=== PATIENT | female | born 1945 ===

== ENCOUNTER 2020-01-10 07:33 | Observation (INO) ==
[~2020-01-10 07:33] MED LIST: Buffered Lidocaine 1% SYRIN 1 ml INTRADERM ONE; Lactated Ringers 1000 ml BAG 1,000 ML IV SCH
[2020-01-10] MEDS ORDERED: ceFAZolin 2 GM PREMIX 2 GM/50 ML BAG ONE (07:42)
[2020-01-10] MEDS ORDERED: fentaNYL 100 mcg/2 ml 50 MCG/ML VIAL ONE ×4 (07:56→13:01)
[2020-01-10] MEDS ORDERED: Midazolam 2 mg/2 ml VIAL 1 mg/ml 2 ml VIAL (2 mg) ONE (07:56)
[2020-01-10] MEDS ORDERED: Propofol 10 MG/ML 20 ML BTL ONE (07:57)
[2020-01-10] MEDS ORDERED: ROPIVACAINE 5 MG/ML 30 ML BTL (0.5%) ONE ×2 (09:06→09:08)
[2020-01-10] MEDS ORDERED: Lidocaine 2% PF 5 ML VIAL ONE (09:06)
[2020-01-10] MEDS ORDERED: Bupivacaine 0.5% SDV PF 30ML VIAL ONE (09:06)
[2020-01-10] MEDS ORDERED: Bupivacaine 0.25% SDV PF 10 ML VIAL INJ ONE (09:06)
[2020-01-10] MEDS ORDERED: Phenylephrine 40 mcg/mL 10mL (400mcg) SYRINGE ONE (10:03)
[2020-01-10] MEDS ORDERED: Rocuronium 50 mg VIAL 10 mg/ml 5 ml VIAL (50 mg) ONE (10:06)
[2020-01-10] MEDS ORDERED: HYDROmorphone 1 MG/1 ML SYRINGE ONE ×4 (10:07→13:07)
[2020-01-10] MEDS ORDERED: Dexamethasone IV 4 MG/ML VIAL 1 ml VIAL ONE (10:10)
[2020-01-10] MEDS ORDERED: Naloxone 0.4 mg VIAL 0.4 mg/ml 1 ml VIAL IV PRN (10:17)
[2020-01-10] MEDS ORDERED: Ondansetron 4 mg VIAL 2 MG/ML 2 ml VIAL IV PRN ×2 (10:17→10:35)
[2020-01-10] MEDS ORDERED: Magnesium Hydroxide LIQ 30 ML UDC PO PRN (10:35)
[2020-01-10] MEDS ORDERED: Lactulose 30 ml UDC PO PRN (10:35)
[2020-01-10] MEDS ORDERED: Morphine 2 MG/ML SYRINGE IV PRN (10:35)
[2020-01-10] MEDS ORDERED: diPHENhydraMINE 25 mg TAB PO PRN ×2 (10:35→12:00)
[2020-01-10] MEDS ORDERED: diPHENhydraMINE IV 50 MG/ML 1 ml VIAL (BENADRYL) IV PRN (10:35)
[2020-01-10] MEDS ORDERED: Ondansetron ODT 4 mg TAB 4 MG TAB PO PRN (10:35)
[2020-01-10] MEDS ORDERED: hydrALAZINE 20 mg/ml 1 ML Vial IV ONE (10:36)
[2020-01-10] MEDS ORDERED: EPHEDrine (Pressors) 50 MG/ML VIAL ONE (11:23)
[2020-01-10] MEDS ORDERED: Ondansetron 4 mg VIAL 2 MG/ML 2 ml VIAL ONE (11:41)
[2020-01-10] MEDS: fentaNYL 100 mcg/2 ml 50 MCG/ML VIAL IV PRN ×4 (12:18→12:50)
[2020-01-10] MEDS: HYDROmorphone 1 MG/1 ML SYRINGE IV PRN ×5 (12:18→12:55)
[2020-01-10] MEDS ORDERED: HYDROmorphone 0.5 MG/0.5 ML SYRINGE IV SLOW PU ONE (12:23)
[2020-01-10] MEDS ORDERED: Oxycodone IR 10 mg TAB (NF) PO ONE (12:38)
[2020-01-10] MEDS ORDERED: fentaNYL 100 mcg/2 ml 50 MCG/ML VIAL IV SLOW PU ONE (12:43)
[2020-01-10] MEDS ORDERED: HYDROmorphone 1 MG/1 ML SYRINGE IV ONE (12:45)
[2020-01-10] MEDS: Lactated Ringers 1000 ml BAG 1,000 ML IV SCH (14:40)
[2020-01-10] MEDS: oxyCODONE/Acetamin 5/325 mg TAB PO PRN ×2 (14:56→19:02)
[2020-01-10] MEDS: ceFAZolin 1 GM ADVAN 1 GM in NS 0.9% 50 ML 50 ML IVPB SCH (18:01)
[2020-01-10] MEDS ORDERED: SUVOREXANT 20 MG PO SCH (21:00)
[2020-01-10] MEDS: Magnesium Hydroxide LIQ 30 ML UDC PO SCH (21:35)
[2020-01-10] MEDS ORDERED: Lidocaine 4% GEL 10 GM TUBE TOPICAL ONE (22:00)
[2020-01-10] MEDS: HYDROcodone/ACETAMIN 5/325 mg TAB PO PRN (23:27)
[2020-01-10] MEDS ORDERED: Fluticasone NASAL SPRAY 50MCG 16 gm SPRAY BTL LEFT NARE PRN (23:58)
[2020-01-11] MEDS: Lactated Ringers 1000 ml BAG 1,000 ML IV SCH (01:09)
[2020-01-11] MEDS: ceFAZolin 1 GM ADVAN 1 GM in NS 0.9% 50 ML 50 ML IVPB SCH ×2 (02:15→09:47)
[2020-01-11] MEDS: HYDROcodone/ACETAMIN 5/325 mg TAB PO PRN ×3 (04:29→12:20)
[2020-01-11 06:55] LABS: Hematocrit 28 % (35-47); Hemoglobin 9.7 g/dL (12.0-16.0); Mean Platelet Volume 9.5 fL (7.4-10.4); Platelet Count 143 10^3/uL (150-450)
[2020-01-11 07:06] LABS: BUN/Creatinine Ratio 13.4 (8-20); Calcium 8.3 mg/dL (8.6-10.3); EGFR African American 68.3 (>60); EGFR Non-African American 56.5 (>60); Potassium 3.5 mmol/L (3.5-5.0)
[2020-01-11] MEDS: Magnesium Hydroxide LIQ 30 ML UDC PO SCH (08:32)
[2020-01-11] MEDS ORDERED: Vitamin THERAPEUTIC TAB PO SCH (09:00)
[2020-01-11] MEDS ORDERED: Influenza VAC *QUAD* 2020-21* 0.5 ML SYRINGE IM ONE (09:00)
[2020-01-11 11:27] VITALS: BP 155/51
== END 2020-01-11 13:35 | disposition home or self-care (01) ==
LOC: OR 07:33 → SSU 07:33
PROVIDERS: ADMIT Orthopaedic Surgery Adult Reconstructive Orthopaedic Surgery; ATTEND Orthopaedic Surgery Adult Reconstructive Orthopaedic Surgery

== ENCOUNTER 2022-04-07 11:21 | Observation (INO) ==
[2022-04-07 11:47] LABS: ABS Eosinophils 0.1 10^3/ul (0-0.6); ABS Lymphocytes 1.2 10^3/ul (1.0-4.8); ABS Monocytes 0.5 10^3/ul (0-0.8); ABS Neutrophils 4.1 10^3/ul (1.5-7.7); Eosinophil % 1.4 %; Hematocrit 41 % (35-47); Hemoglobin 13.4 g/dL (12.0-16.0); Lymphocyte % 20.8 %; Mean Corpuscular HGB Conc 33 g/dL (31-36); Mean Corpuscular Hemoglobin 29 pg (27-31); Mean Corpuscular Volume 89 fL (80-97); Platelet Count 205 10^3/uL (150-450); Red Blood Count 4.58 10^6 /uL (3.70-4.87); Red Cell Distribution Width 15 % (10-15); White Blood Count 5.9 10^3/uL (3.5-10.8)
[2022-04-07 11:53] LABS: INR 0.99 (0.88-1.18)
[2022-04-07 12:25] LABS: Albumin 4.1 g/dL (3.2-5.2); Albumin/Globulin Ratio 2.3 (1-3); Calcium 8.7 mg/dL (8.6-10.3); Globulin 1.8 g/dL (2-4); Potassium 4.2 mmol/L (3.5-5.0); Total Bilirubin 0.6 mg/dL (0.2-1.0); Total Protein 5.9 g/dL (6.4-8.9); eGFR CKD-EPI 61.3 (>60)
[2022-04-07 13:17] LABS: High Sensitivity Troponin 1 Hr 93 pg/mL (<15)
[2022-04-07] MEDS ORDERED: Morphine 4 MG/ML VIAL (1 ml) IV ONE (14:59)
[2022-04-07] MEDS ORDERED: Labetalol IV 5 MG/ML 20 ml VIAL IV PUSH ONE ×3 (15:33→17:53)
[2022-04-07 17:39] LABS: High Sensitivity Troponin 3 Hr 521 pg/mL (<15)
[2022-04-07] MEDS ORDERED: fentaNYL 100 mcg/2 ml 50 MCG/ML VIAL IV SLOW PU ONE (17:53)
[2022-04-07] MEDS ORDERED: HYDROmorphone 1 MG/1 ML SYRINGE IV ONE (17:55)
[2022-04-07] MEDS: Aspirin EC 81 mg TAB.EC (enteric coated) PO SCH (17:58)
[2022-04-07] MEDS ORDERED: Senna/Docusate 8.6/50 mg (NF) TAB PO PRN (18:22)
[2022-04-07] MEDS ORDERED: Naloxone 0.4 mg VIAL 0.4 mg/ml 1 ml VIAL IV PUSH PRN (18:28)
[2022-04-07] MEDS ORDERED: Docusate LIQ 100 MG/10 ML UDC PO PRN (19:32)
[2022-04-07] MEDS ORDERED: Senna TAB 8.6 mg TAB PO PRN (19:32)
[2022-04-07] MEDS ORDERED: fentaNYL PATCH 25 MCG/HR 1 PATCH TRANSDERM SCH (20:00)
[2022-04-07] MEDS: fentaNYL Patch Check Q Shift NOTE FOLLOW UP SCH (20:21)
[2022-04-07] MEDS ORDERED: Labetalol IV 5 MG/ML 20 ml VIAL IV PUSH PRN (20:46)
[2022-04-07] MEDS: HYDROcodone/Acetamin 10/325 TAB (NF) PO PRN (21:23)
[2022-04-08 05:26] LABS: Calcium 6.5 mg/dL (8.6-10.3); Magnesium 1.7 mg/dL (1.9-2.7); Potassium 3.1 mmol/L (3.5-5.0); eGFR CKD-EPI 87.7 (>60)
[2022-04-08 05:29] LABS: ABS Lymphocytes 1.4 10^3/ul (1.0-4.8); ABS Monocytes 0.4 10^3/ul (0-0.8); ABS Neutrophils 4.5 10^3/ul (1.5-7.7); Eosinophil % 0.6 %; Hematocrit 39 % (35-47); Lymphocyte % 21.9 %; Mean Corpuscular HGB Conc 33 g/dL (31-36); Mean Corpuscular Hemoglobin 29 pg (27-31); Mean Corpuscular Volume 88 fL (80-97); Mean Platelet Volume 8.4 fL (7.4-10.4); Platelet Count 187 10^3/uL (150-450); Red Blood Count 4.41 10^6 /uL (3.70-4.87); Red Cell Distribution Width 15 % (10-15); White Blood Count 6.4 10^3/uL (3.5-10.8)
[2022-04-08 05:47] LABS: Calcium 8.7 mg/dL (8.6-10.3); Magnesium 2.2 mg/dL (1.9-2.7); Potassium 3.8 mmol/L (3.5-5.0); eGFR CKD-EPI 60.6 (>60)
[2022-04-08] MEDS ORDERED: Regadenoson 0.4 MG/5 ML SYRINGE ONE (08:00)
[2022-04-08] MEDS ORDERED: Aminophylline 25 MG/ML VIAL ONE (08:00)
[2022-04-08] MEDS ORDERED: CMCS: Pravastatin 20 mg TAB (NF) PO SCH (09:00)
[2022-04-08] MEDS: HYDROcodone/Acetamin 10/325 TAB (NF) PO PRN (10:25)
[2022-04-08] MEDS: Aspirin EC 81 mg TAB.EC (enteric coated) PO SCH (10:26)
[2022-04-08] MEDS: fentaNYL Patch Check Q Shift NOTE FOLLOW UP SCH (10:30)
[2022-04-08 17:02] VITALS: BP 149/83
== END 2022-04-08 17:03 | disposition left against medical advice (07) ==
LOC: EDHOLD 11:21 → ED 11:21 → EDHOLD 04-08 17:01
PROVIDERS: ADMIT Internal Medicine; ATTEND Internal Medicine